=== PATIENT | female | born 1990 | race Caucasian/White ===

== ENCOUNTER 2024-07-25 15:18 | Emergency (ER) | payer MEDICAID, SELFPAY ==
[2024-07-25 15:29] VITALS: BP 151/103; PULSE 111; RESP 17; TEMP 36.8; O2SAT 96; BMI 32.1
[2024-07-25] MEDS: METOCLOPRAMIDE 5 MG TABLET 10 MG PO (16:15)
[2024-07-25] MEDS: CYCLObenzaPRINE 5 MG TABLET PO (16:15)
[2024-07-25] MEDS: ACETAMINOPHEN 325 MG TABLET 650 MG PO (16:15)
[2024-07-25] MEDS: DiphenhydrAMINE INJ 50 MG/ML VIAL IM (16:16)
[2024-07-25] MEDS: KETOROLAC INJ 60 MG/2 ML VIAL 30 MG IM (16:17)
[2024-07-25 16:47] LABS: Basophils # (Auto) 0.1 Thou/mm3 (0.0-0.2); Basophils % (Auto) 1 % (0-2.5); Eosinophils # (Auto) 0.3 Thou/mm3 (0.0-0.5); Eosinophils % (Auto) 3 % (0-10); Hematocrit 36.5 % (36.0-46.0); Hemoglobin 11.3 g/dL (12.0-16.0); Immature Granulocytes % (Auto) 0 % (0-0); Immature Granulocytes Auto 0.02 Thou/mm3 (0.00-0.00); Lymphocytes # (Auto) 2.7 Thou/mm3 (1.0-4.8); Lymphocytes % (Auto) 28 % (10-50); Mean Corpuscular Hemoglobin 22.2 pg (25.0-35.0); Mean Corpuscular Volume 72 fL (80-100); Monocytes # (Auto) 0.4 Thou/mm3 (0.0-0.8); Monocytes % (Auto) 4 % (0-12); Neutrophils # (Auto) 6.2 Thou/mm3 (1.8-7.7); Neutrophils % (Auto) 64 % (37-80); Nucleated Red Blood Cell % 0 /100 WBC (0); Platelet Count 346 Thou/mm3 (140-440); RDW Standard Deviation 41.9 fL (36.4-46.3); Red Blood Count 5.09 Miln/mm3 (4.00-5.20); White Blood Count 9.7 Thou/mm3 (3.6-11.0)
--- NOTE | 2024-07-25 17:33 | PD.EDHA ---
ED Headache RME/HPI General Chief Complaint: Headache Stated Complaint: Headache, bump to back of left head Time Seen by Provider: 07/25/24 15:34 Arrival date/time: 07/25/24 15:18 Limitations: no limitations RME / HPI RME / HPI Narrative: 33-year-old female with past medical history of migraines and anemia presents for evaluation of headache x 5 days. She describes it as constant aching from her trapezius region that radiates to her frontal scalp. She endorses that it is worse with movement of her neck. She endorses photophobia and intermittent nausea. She states this is similar to prior headaches. She notes small swollen lesion in her left posterior, temporal scalp. She denies fever, vomiting, numbness, tingling, visual changes, weakness, lethargy. Denies recent travel and known sick contacts. LNMP x 2 weeks ago. MD Complaint: headache Onset description: sudden Location: frontal, occipital and diffuse Quality: aching and similar to previous headaches Relieving factors: nothing Exacerbating factors: movement of head/neck Associated symptoms: photophobia Treatments prior to arrival: none Related Data Home Medications ?Medication ?Instructions ?Recorded ?Confirmed brexpiprazole 0.5 mg tablet 0.5 tab PO HS 09/01/21 09/01/21 (Rexulti) bupropion HCl 150 mg tablet,12 hr 1 ea PO DAILY 09/01/21 09/01/21 sustained-release ferrous sulfate 325 mg (65 mg 325 tab PO DAILY 09/01/21 09/01/21 iron) tablet (FeroSul) levetiracetam 500 mg tablet 500 tab PO BID 09/01/21 09/01/21 Previous Rx's ?Medication ?Instructions ?Recorded lorazepam 1 mg tablet 1 mg PO QDAY PRN anxiety #3 tabs 11/04/18 cyclobenzaprine 10 mg tablet 10 mg PO TID PRN muscle spasm #30 07/25/24 tabs ibuprofen 800 mg tablet 800 mg PO Q8H PRN pain #14 tabs 07/25/24 ondansetron 4 mg disintegrating 4 mg PO Q8H PRN nausea and 07/25/24 tablet vomiting #14 tabs Allergies Allergy/AdvReac Type Severity Reaction Status Date / Time No Known Allergies Allergy Verified 07/25/24 15:22 Review of Systems Constitutional Constitutional: Denies chills, Denies fatigue, Denies fever(s), Reports headache(s), Reports poor appetite and Denies weakness Eyes Eyes: Denies blind spots, Denies blurry vision, Denies change in vision, Denies diplopia, Denies loss of vision, Reports photophobia, Denies spots in vision and Denies tunnel vision ENT Ears, Nose, Mouth, and Throat: Denies disequilibrium, Denies dizziness, Denies otalgia, Reports headache(s), Denies nasal discharge, Reports neck pain, Denies sore throat and Denies vertigo Cardiovascular Cardiovascular: Denies chest pain, Denies dyspnea and Denies palpitations Respiratory Respiratory: Denies cough, Denies dyspnea and Denies wheezing Gastrointestinal Gastrointestinal: Denies abdominal pain, Denies diarrhea, Reports nausea and Denies vomiting Genitourinary Genitourinary: Denies abnormal vaginal bleeding and Denies dysuria Musculoskeletal Musculoskeletal: Denies back pain, Denies muscle weakness, Reports neck pain, Denies stiffness and Denies tingling Integumentary/Breasts Skin/Breast: Denies lesions and Denies rash Neurologic Neurologic: Denies abnormal movements, Denies abnormal speech, Denies disequilibrium, Denies dizziness, Reports headache(s), Denies lack of coordination, Denies loss of vision, Denies seizure-like activity, Denies tingling, Denies vertigo and Denies weakness Endocrine Endocrine: Denies fatigue and Denies palpitations Allergic/Immunologic Allergic/Immunologic: Denies wheezing Past Medical History Past Medical History NEUROLOGIC: Positive Migraine CARDIAC: Negative Congestive Heart Failure RESPIRATORY: Negative Chronic Obstructive Pulmonary Disease (COPD) GENITOURINARY: Negative Renal Disease ENDOCRINE: Negative Diabetes Mellitus Type 1 or Diabetes Mellitus Type 2 HEMATOLOGIC: Positive Anemia PSYCHO/SOCIAL: Positive Depression and Anxiety Surgical History SURGICAL: Positive Oral Surgery Social History SMOKING STATUS: Never smoker SUBSTANCE USE: does not use ED Exam General Limitations: Present no limitations General appearance: Present alert and in no apparent distress Head Head exam: Present atraumatic and normocephalic Eye Eye exam: Present normal appearance, PERRL and EOMI; Absent nystagmus ENT ENT exam: Present normal oropharynx, mucous membranes moist and TM's normal bilaterally Neck Neck exam: Present normal inspection and lymphadenopathy (Focal lymphadenopathy left temporal scalp with moderate tenderness to palpation. No overlying warmth or erythema.); Absent meningismus Chest Chest inspection: Present normal inspection and symmetric chest wall rise Respiratory Respiratory exam: Present normal lung sounds bilaterally; Absent respiratory distress or wheezes Cardiovascular Cardiovascular exam: Present tachycardia and +S1 Abdominal Exam Abdominal exam: Present soft; Absent distention or tenderness Extremities Exam Extremities exam: Present normal inspection and full ROM Back Exam Back exam: Present normal inspection, full ROM, muscle spasm (Muscle spasm bilateral trapezius region.) and paraspinal tenderness (Significant paraspinal tenderness to palpation bilateral cervical spine and trapezius.); Absent vertebral tenderness Neurological Exam Neurological exam: Present alert, oriented X3 and normal gait; Absent motor sensory deficit Expanded Neurological Exam Patient oriented to: Present person, place and time Speech: Present fluid speech Cranial nerves: Normal: facial sensation (V), facial palsy (VII) and spinal accessory function (XI) Cerebellar function: Normal: finger to nose Cerebellar function: Present normal gait Motor strength - LUE: 5/5 Motor strength - RUE: 5/5 Motor strength - LLE: 5/5 Motor strength - RLE: 5/5 Psychiatric Psychiatric exam: Present normal affect Skin Skin exam: Present warm, dry, intact and normal color Course Quality Measures none Orders Category Date Time Status CBC Stat Lab 07/25/24 16:27 Completed Acetaminophen Tab [Tylenol Tab] Med 07/25/24 15:55 Discontinued 650 mg PO X1 ONE CYCLObenzaPRINE [Flexeril] Med 07/25/24 15:55 Discontinued 5 mg PO X1 ONE DiphenhydrAMINE INJ [Benadryl Inj] Med 07/25/24 15:55 Discontinued 50 mg IM X1 ONE Ketorolac Inj [Toradol Inj] Med 07/25/24 15:55 Discontinued 30 mg IM X1 ONE Metoclopramide [Reglan] Med 07/25/24 15:55 Discontinued 10 mg PO X1 ONE Vital Signs Vital signs: Vital Signs Temperature 98.3 F 07/25/24 15:29 Pulse Rate 111 H 07/25/24 15:29 Respiratory Rate 17 07/25/24 15:29 Blood Pressure 151/103 H 07/25/24 15:29 Pulse Oximetry (%) 96 07/25/24 15:29 Oxygen Delivery Method Room Air 07/25/24 15:29 Pulse ox 96% on room air, within normal limits. Headache MDM Narrative MDM Narrative:: 33-year-old female presented for evaluation of headache x 5 days. She reported was similar to prior headaches. Patient tachycardic otherwise vital signs reassuring. Fortunately no neurodeficit on examination so less concern for CVA at this time. Patient afebrile with no meningeal signs. I checked CBC as patient reported history of anemia and she was anemic but not to the degree requiring emergent transfusion at this time. More likely tension headache given significant trapezius tension on examination. Patient symptoms were improved following headache cocktail in the department. Ultimately she was discharged with plan to follow-up with outpatient neurology for further management of her chronic headaches. Strict return precautions were provided. Patient stable at time of discharge. Patient data External records reviewed:: [facility] previous records Clinical information provided by:: patient Social determinants that could affect healthcare access:: none Patient has the following chronic illnesses:: Headaches. How is presenting disease/condition affected by chronic disease/condition?: exacerbated by Evaluation data The following diagnostics were reviewed and interpreted by me:: lab results Lab and/or radiology exams considered but not ordered:: CT head considered not ordered. Lab work considered not ordered. Interpretation Summary: CBC showed mild anemia. Not requiring blood transfusion at this time. Medications / Prescriptions Medications or Prescriptions considered but not ordered:: Rx given. Medication administrations:: Medication Administration History Discontinued Medications Acetaminophen (Acetaminophen 325 Mg Tablet) 650 mg PO X1 ONE Stop: 07/25/24 15:56 Last Admin: 07/25/24 16:15 Dose: 650 mg Documented By: Cyclobenzaprine HCl (Cyclobenzaprine 5 Mg Tablet) 5 mg PO X1 ONE Stop: 07/25/24 15:56 Last Admin: 07/25/24 16:15 Dose: 5 mg Documented By: Diphenhydramine HCl (Diphenhydramine Inj 50 Mg/Ml Vial) 50 mg IM X1 ONE Stop: 07/25/24 15:56 Last Admin: 07/25/24 16:16 Dose: 50 mg Documented By: Ketorolac Tromethamine (Ketorolac Inj 60 Mg/2 Ml Vial) 30 mg IM X1 ONE Stop: 07/25/24 15:56 Last Admin: 07/25/24 16:17 Dose: 30 mg Documented By: Metoclopramide HCl (Metoclopramide 5 Mg Tablet) 10 mg PO X1 ONE Stop: 07/25/24 15:56 Last Admin: 07/25/24 16:15 Dose: 10 mg Documented By: Rx given. Consultations Consultation(s) initiated? (list below): No Diagnosis Differential diagnosis headache: migraine, tension headache, subarachnoid hemorrhage, headache and sinusitis Most likely diagnosis given after review of the tests above:: Headache. Admission Indicated Admission indicated?: not indicated Admission Request Was there a request for admission?: No Disposition Plan Disposition Plan: Discharge Discharge Attestation Discharge Attestation: The patient and all family members were given an opportunity to ask questions and understood the discharge instructions. Discharge instructions specifically effects, indications for sooner follow up or return to the emergency department, and the expected course of current diagnosis. Patient condition: Stable Discharge Plan Plan Patient Disposition: HOME (Self Care) Discharge Disposition comment: stable Prescriptions/Referrals Prescriptions/Med Rec: New cyclobenzaprine 10 mg tablet 10 mg PO TID PRN (Reason: muscle spasm) Qty: 30 0RF ibuprofen 800 mg tablet 800 mg PO Q8H PRN (Reason: pain) Qty: 14 0RF ondansetron 4 mg tablet,disintegrating 4 mg PO Q8H PRN (Reason: nausea and vomiting) Qty: 14 0RF No Action lorazepam 1 mg tablet 1 mg PO QDAY PRN (Reason: anxiety) Qty: 3 0RF bupropion HCl 150 mg tablet sustained-release 12 hr 1 ea PO DAILY Patient Comments: TAKE ONE TABLET BY MOUTH TWICE DAILY levetiracetam 500 mg tablet 500 tab PO BID Patient Comments: TAKE ONE TABLET BY MOUTH TWICE DAILY ferrous sulfate [FeroSul] 325 mg (65 mg iron) tablet 325 tab PO DAILY Patient Comments: TAKE ONE TABLET BY MOUTH TWICE DAILY VITAMIN Rexulti 0.5 mg tablet 0.5 tab PO HS Patient Comments: TAKE ONE TABLET BY MOUTH AT BEDTIME Referrals: Héctor ([facility]),VANESA Gomez [Primary Care Provider] - In 1 week Problem List Clinical Impression: Headache Patient/Caregiver Discharge Instructions Education Materials: Self-Care for Headaches Additional Instructions: Follow-up with primary care within the next week for reevaluation. Take multivitamin as discussed for borderline anemia. Follow-up with neurology for recurrent headaches as discussed. Take Flexeril as needed for muscle tension every 8 hours. Take ibuprofen or Tylenol every 6 hours as needed for headache. Hydrate well with adequate p.o. fluids. Return to the ED if your symptoms worsen or change. Print Language: Icelandic Stand Alone Forms: [employer] Award Info., Patient Portal Info Letter PA/AVIATION TECHNICAL SYSTEMS SPECIALIST Supervising Physician PA/AVIATION TECHNICAL SYSTEMS SPECIALIST Supervising Physician: Dr. Fields
== END 2024-07-25 18:42 | disposition home or self-care (01) ==
PROVIDERS: Physician Assistant; Emergency Provider Emergency Medicine; PCP Physician Assistant
DX: R51.9 Headache, unspecified (principal)
CPT/HCPCS: 36415; 85025; 96372; 99283; J1200; J1885; A9270

== ENCOUNTER 2024-10-13 23:09 | Emergency (ER) | payer MEDICAID, SELFPAY ==
[2024-10-14 00:06] VITALS: BP 130/84; PULSE 89; RESP 20; TEMP 36.9; O2SAT 98; BMI 32.8
--- NOTE | 2024-10-14 00:07 | XR_ITS ---
Examination: CT brain head without contrast. 2-D sagittal coronal reconstructions Date and time of exam:October 14, 2024, 0016 hrs. Indications: Onset headaches today CTDI: vol (mGy):44.20 DLP: (mGycm):945 Technique: Multiple CT axial sections of the brain have been obtained, 5 mm slice thickness. Contrast has not been administered. 2-D sagittal, coronal reconstructions have been obtained Low dose protocols were performed. One or more of the following dose reduction techniques were used; automated exposure control, adjustment of the mA and/or KV according to patient size, use of iterative reconstruction technique. Findings: No significant ventricular enlargement. Intra-axial or extra-axial hemorrhage density is not seen. No mass effect or midline shift Basal cisterns are not remarkable. Fourth ventricle is midline. Cranial vault intact. Impression: Negative for acute hemorrhage, mass effect or midline shift Chronic ethmoid sinusitis
--- NOTE | 2024-10-14 00:07 | PD.EDRME ---
Rapid Medical Screening Exam RME Arrival date/time: 10/13/24 23:09 This is a case of 33-year-old female with no medical history came into the emergency room due to headache and dizziness for 3 days worsening of the symptoms this patient decided to start consulted in the emergency room Chief Complaint: Headache Time Seen by Provider: 10/14/24 00:06 Vital signs: Vital Signs Temperature 98.4 F 10/14/24 00:06 Pulse Rate 89 10/14/24 00:06 Respiratory Rate 20 10/14/24 00:06 Blood Pressure 130/84 10/14/24 00:06 Pulse Oximetry (%) 98 10/14/24 00:06
--- NOTE | 2024-10-14 00:37 | PRELIM_ITS ---
CT scan of the head without intravenous contrast (axial sections with sagittal and coronal reformats). October 14, 2024 0016 hours Clinical History: headache Comparison: None currently available for review Findings: There is no intracranial hemorrhage, extra-axial collection, mass, mass-effect or midline shift. There is good haines-white differentiation. There is no CT evidence of acute large vascular territorial infarct. Ventricles are not enlarged or effaced. Visualized paranasal sinuses and tympanomastoid cavities are clear. The bony calvarium is intact. Impression: No intracranial hemorrhage, mass-effect or midline shift. No CT evidence of acute large vascular territorial infarct. Report Electronically Signed By: Jerad Magallon 10/14/2024 12:36:24 AM [EST]
[2024-10-14 00:39] VITALS: BP 135/107; PULSE 99; RESP 22; TEMP 36.8; O2SAT 97
[2024-10-14 01:00] VITALS: BP 143/94; PULSE 89; RESP 20; TEMP 36.8; O2SAT 95
--- NOTE | 2024-10-14 01:08 | PD.EDHA ---
ED Headache RME/HPI General Chief Complaint: Headache Stated Complaint: HEADACHE Time Seen by Provider: 10/14/24 00:06 Arrival date/time: 10/13/24 23:09 RME / HPI RME / HPI Narrative: 10/13/24 23:09 This is a case of 33-year-old female with no medical history came into the emergency room due to headache and dizziness for 3 days worsening of the symptoms this patient decided to start consulted in the emergency room DR. OBRIEN MAIN ED EVALUATION: 33 y/o female with Hx of Migraines, Anxiety, and Anemia presents to ED c/o with anterior and posterior headache x 3 days. Denies vomiting due to not being able to eat much over the last few days. Also reports difficulty sleeping due to the pain. Patient states this headache feels similar to the one she was seen for in July, but feels more pain towards the posterior aspect of the head this time. Noallergies to medication reported. Related Data Home Medications ?Medication ?Instructions ?Recorded ?Confirmed brexpiprazole 0.5 mg tablet 0.5 tab PO HS 09/01/21 09/01/21 (Rexulti) bupropion HCl 150 mg tablet,12 hr 1 ea PO DAILY 09/01/21 09/01/21 sustained-release ferrous sulfate 325 mg (65 mg 325 tab PO DAILY 09/01/21 09/01/21 iron) tablet (FeroSul) levetiracetam 500 mg tablet 500 tab PO BID 09/01/21 09/01/21 Previous Rx's ?Medication ?Instructions ?Recorded lorazepam 1 mg tablet 1 mg PO QDAY PRN anxiety #3 tabs 11/04/18 cyclobenzaprine 10 mg tablet 10 mg PO TID PRN muscle spasm #30 07/25/24 tabs ibuprofen 800 mg tablet 800 mg PO Q8H PRN pain #14 tabs 07/25/24 ondansetron 4 mg disintegrating 4 mg PO Q8H PRN nausea and 07/25/24 tablet vomiting #14 tabs naproxen 500 mg tablet (Naprosyn) 500 mg PO BID PRN pain #30 tabs 10/14/24 Allergies Allergy/AdvReac Type Severity Reaction Status Date / Time No Known Allergies Allergy Verified 10/13/24 23:10 Review of Systems Review of Systems Systems Reviewed: All systems reviewed, normal except as documented Past Medical History Past Medical History NEUROLOGIC: Positive Migraine CARDIAC: Positive Hypercholesterolemia RESPIRATORY: Positive Asthma HEMATOLOGIC: Positive Anemia PSYCHO/SOCIAL: Positive Depression, Anxiety and Post Traumatic Stress Disorder Surgical History SURGICAL: Positive Oral Surgery ED Exam Narrative Physical exam: Generally patient is alert and in no obvious distress, head is normocephalic atraumatic, eyes pupils are equal round reactive to light, neck shows no nuchal rigidity, neurologic exam shows [place] Coma Scale of 15 without focal motor deficits, heart regular rate and rhythm, lungs clear to auscultation equal bilaterally, abdomen soft bowel sounds present nondistended nontender Course Quality Measures none Orders Category Date Time Status CT head/brain wo con Stat Exams 10/14/24 00:07 Taken Ketorolac Inj [Toradol Inj] Med 10/14/24 01:09 Discontinued 60 mg IM X1 ONE Metoclopramide Inj [Reglan Inj] Med 10/14/24 01:09 Discontinued 10 mg IM X1 ONE Vital Signs Vital signs: Vital Signs Temperature 98.4 F 10/14/24 00:06 Pulse Rate 89 10/14/24 00:06 Respiratory Rate 20 10/14/24 00:06 Blood Pressure 130/84 10/14/24 00:06 Pulse Oximetry (%) 98 10/14/24 00:06 Headache MDM Narrative MDM Narrative:: Scribe Attestation: Latesha Alcantara am scribing for and in the presence of Dr. Obrien. Provider Notation: Although this document has been carefully reviewed, there may still be some phonetic and other typographical errors. These errors are purely grammatical due to imperfections in the software program and should not be construed in any way to compromise the substance of the patient's medical care during this visit. Differential diagnosis: Primary cephalgia, secondary cephalgia I do not believe this patient had meningitis and intracerebral bleed or tumor. Prior to my evaluation a CAT scan was ordered and the CAT scan was negative. Patient received Toradol 60 mg IM and Reglan 10 mg IM. She was discharged on Naprosyn to be taken as prescribed. Follow-up with her doctor as needed for further treatment and evaluation. Patient states that these headaches are hereditary because they are suffered from multiple family members. Patient data External records reviewed:: [facility] previous records (Reviewed prior ED records from 07/25/24. Patient was seen for Headache.) Clinical information provided by:: patient Social determinants that could affect healthcare access:: none Patient has the following chronic illnesses:: Migraine, Hypercholesterolemia, Asthma, Anemia, Depression, Anxiety and Post Traumatic Stress Disorder How is presenting disease/condition affected by chronic disease/condition?: exacerbated by Evaluation data The following diagnostics were reviewed and interpreted by me:: lab results and radiology exam(s) Lab and/or radiology exams considered but not ordered:: None Interpretation Summary: RADIOLOGY Head/Brain CT: Findings: There is no intracranial hemorrhage, extra-axial collection, mass, mass-effect or midline shift. There is good haines-white differentiation. There is no CT evidence of acute large vascular territorial infarct. Ventricles are not enlarged or effaced. Visualized paranasal sinuses and tympanomastoid cavities are clear. The bony calvarium is intact. Impression: No intracranial hemorrhage, mass-effect or midline shift. No CT evidence of acute large vascular territorial infarct. Medications / Prescriptions Medications or Prescriptions considered but not ordered:: None Medication administrations:: Medication Administration History Discontinued Medications Ketorolac Tromethamine (Ketorolac Inj 60 Mg/2 Ml Vial) 60 mg IM X1 ONE Stop: 10/14/24 01:10 Last Admin: 10/14/24 01:17 Dose: 60 mg Documented By: BD Metoclopramide HCl (Metoclopramide Inj 5 Mg/Ml Vial 2 Ml) 10 mg IM X1 ONE; Protocol Stop: 10/14/24 01:10 Last Admin: 10/14/24 01:17 Dose: 10 mg Documented By: BD See above if any Consultations Consultation(s) initiated? (list below): No Diagnosis Differential diagnosis headache: migraine, tension headache, subarachnoid hemorrhage, headache and sinusitis Most likely diagnosis given after review of the tests above:: none Admission Indicated Admission indicated?: not indicated Explain why admission is indicated or not indicated:: Patient does not meet admission criteria Admission Request Was there a request for admission?: No Disposition Plan Disposition Plan: Discharge Discharge Attestation Discharge Attestation: The patient and all family members were given an opportunity to ask questions and understood the discharge instructions. Discharge instructions specifically effects, indications for sooner follow up or return to the emergency department, and the expected course of current diagnosis. Patient condition: Stable Discharge Plan Plan Patient Disposition: HOME (Self Care) Prescriptions/Referrals Prescriptions/Med Rec: New naproxen [Naprosyn] 500 mg tablet 500 mg PO BID PRN (Reason: pain) Qty: 30 0RF No Action lorazepam 1 mg tablet 1 mg PO QDAY PRN (Reason: anxiety) Qty: 3 0RF bupropion HCl 150 mg tablet sustained-release 12 hr 1 ea PO DAILY Patient Comments: TAKE ONE TABLET BY MOUTH TWICE DAILY levetiracetam 500 mg tablet 500 tab PO BID Patient Comments: TAKE ONE TABLET BY MOUTH TWICE DAILY ferrous sulfate [FeroSul] 325 mg (65 mg iron) tablet 325 tab PO DAILY Patient Comments: TAKE ONE TABLET BY MOUTH TWICE DAILY VITAMIN Rexulti 0.5 mg tablet 0.5 tab PO HS Patient Comments: TAKE ONE TABLET BY MOUTH AT BEDTIME cyclobenzaprine 10 mg tablet 10 mg PO TID PRN (Reason: muscle spasm) Qty: 30 0RF ibuprofen 800 mg tablet 800 mg PO Q8H PRN (Reason: pain) Qty: 14 0RF ondansetron 4 mg tablet,disintegrating 4 mg PO Q8H PRN (Reason: nausea and vomiting) Qty: 14 0RF Referrals: No Primary/Family,Physician [Primary Care Provider] - In 1 week Problem List Clinical Impression: Headache Patient/Caregiver Discharge Instructions Education Materials: Self-Care for Headaches Additional Instructions: Naprosyn as prescribed. Follow-up with your doctor for further treatment and evaluation as needed. Print Language: Zambian Stand Alone Forms: [employer] Award Info., Patient Portal Info Letter
[2024-10-14] MEDS: KETOROLAC INJ 60 MG/2 ML VIAL IM (01:17)
[2024-10-14] MEDS: METOCLOPRAMIDE INJ 5 MG/ML VIAL 2 ML 10 MG IM (01:17)
--- NOTE | 2024-10-14 01:32 | PC.NURSE ---
PT D/C PRIOR TO PAIN REASSES WOULD NOT ALLOW TO ASSESS EARLY ON MAR
== END 2024-10-14 01:33 | disposition home or self-care (01) ==
PROVIDERS: Emergency Provider Emergency Medicine
DX: R51.9 Headache, unspecified (principal)
CPT/HCPCS: 70450; 80053; 81001; 81025; 85025; 96372; 99283; J1885; J2765

== ENCOUNTER 2024-11-25 16:15 | Emergency (ER) | payer MEDICAID, SELFPAY ==
[2024-11-25 16:51] VITALS: BP 127/90; PULSE 100; RESP 20; TEMP 36.8; O2SAT 97; BMI 34.1
[2024-11-25 16:57] VITALS: PULSE 98; O2SAT 97
--- NOTE | 2024-11-25 17:03 | EKG_ITS ---
[facility] Test Date: 2024-11-25 Pat Name: ÁNGEL VELAZCO Department: Room: - Gender: Female Security Inspector: : 1990 Requested By: Ryne Gamez Order Number: [id number] Reading MD: Ryen Gamez Measurements Intervals [place] Rate: 101 P: 50 MS: 118 QRS: 53 QRSD: 86 T: 11 QT: 351 QTc: 457 Interpretive Statements SINUS TACHYCARDIA WITH SHORT MS INTERVAL LOW QRS VOLTAGE IN PRECORDIAL LEADS [QRS DEFLECTION < 1.0 mV IN CHEST LEADS] NONSPECIFIC T-WAVE ABNORMALITY ABNORMAL RHYTHM ECG No previous ECG available for comparison /store/S0/[id number]/ecg/[id number].pdf
--- NOTE | 2024-11-25 17:03 | XR_ITS ---
EXAMINATION: PA lateral chest 2 views TECHNIQUE: Upright PA lateral chest 2 views Date and time: November 25, 2024, 1710 hours INDICATIONS: Chest pain today FINDINGS: Normal heart size Lungs are clear. Osseous structures are intact. IMPRESSION: No active disease
--- NOTE | 2024-11-25 17:04 | PD.EDRME ---
Rapid Medical Screening Exam RME Arrival date/time: 11/25/24 16:15 34-year-old female with a history of asthma, presents to the emergency room with a chief complaint of dizziness, lightheadedness, headaches, weakness x 4 days I have greeted and performed a focused initial assessment of this patient. A comprehensive ED assessment and evaluation of the patient, analysis of all test results, and completion of the medical decision making process will be conducted by additional ED providers. Chief Complaint: Dizziness Time Seen by Provider: 11/25/24 16:28 Vital signs: Vital Signs Temperature 98.3 F 11/25/24 16:51 Pulse Rate 100 11/25/24 16:51 Respiratory Rate 20 11/25/24 16:51 Blood Pressure 127/90 H 11/25/24 16:51 Pulse Oximetry (%) 97 11/25/24 16:51 Oxygen Delivery Method Room Air 11/25/24 16:51 Vital signs reviewed by provider: Yes
[2024-11-25 18:35] LABS: Collection Type, Urine Clean Catch
[2024-11-25 18:42] LABS: Basophils # (Auto) 0.1 Thou/mm3 (0.0-0.2); Basophils % (Auto) 0 % (0-2.5); Eosinophils # (Auto) 0.2 Thou/mm3 (0.0-0.5); Eosinophils % (Auto) 1 % (0-10); Hematocrit 39.9 % (36.0-46.0); Hemoglobin 11.9 g/dL (12.0-16.0); Immature Granulocytes Auto 0.04 Thou/mm3 (0.00-0.00); Lymphocytes # (Auto) 2.1 Thou/mm3 (1.0-4.8); Lymphocytes % (Auto) 19 % (10-50); Mean Corpuscular HGB Conc 29.8 g/dl (31.0-37.0); Mean Corpuscular Hemoglobin 22.2 pg (25.0-35.0); Mean Corpuscular Volume 75 fL (80-100); Monocytes # (Auto) 0.6 Thou/mm3 (0.0-0.8); Monocytes % (Auto) 6 % (0-12); Neutrophils # (Auto) 8.4 Thou/mm3 (1.8-7.7); Neutrophils % (Auto) 74 % (37-80); Nucleated Red Blood Cell # 0.00 Thou/mm3 (0.00-0.00); Nucleated Red Blood Cell % 0 /100 WBC (0); Platelet Count 410 Thou/mm3 (140-440); RDW Standard Deviation 42.6 fL (36.4-46.3); Red Blood Count 5.35 Miln/mm3 (4.00-5.20); White Blood Count 11.4 Thou/mm3 (3.6-11.0)
[2024-11-25 18:50] LABS: Bacteria,Urine 1+; Bilirubin,Urine Negative (Negative); Blood,Urine Negative (Negative); Color,Urine Yellow (Lt Yel-Yel); Glucose, Urine Negative (Negative); Ketones,Urine Negative (Negative); Leukocyte Esterase,Urine Positive (Negative); Nitrite,Urine Negative (Negative); PH,Urine 6.5 (5.0-7.0); Protein,Urine Trace (Neg - Trace); RBC,Urine 8 /hpf (0-3); Specific Gravity,Urine 1.028 (1.001-1.035); Squamous Epithelial Cell,Urine 4 /hpf (0-5); Urobilinogen,Urine Negative mg/dL (0.0-1.0); WBC,Urine 6 /hpf (0-5)
[2024-11-25 18:51] LABS: Amphetamine/Methamp Scrn,U Negative (Negative); Barbiturate Screen,Urine Negative (Negative); Benzodiazepines Screen,Urine Negative (Negative); Benzoylecgonine Screen, Ur Negative (Negative); Fentanyl Screen,Urine Negative (Negative); Opiate Screen,Urine Negative (Negative); THC Screen,Urine Negative (Negative)
[2024-11-25 18:52] LABS: Clarity,Urine Cloudy (Clear/Hazy); Culture Indicated,Urine Yes
[2024-11-25 19:04] LABS: B-Type Natriuretic Peptide < 20 pg/mL (0-100); INR 1.0 (0.9-1.3); Partial Thromboplastin Time 31.9 Seconds (22.0-36.0); Prothrombin Time 10.4 Seconds (9.0-12.2)
[2024-11-25 19:07] LABS: Alanine Aminotransferase < 7 U/L (10-49); Albumin, Serum 5.1 gm/dL (3.5-5.0); Albumin/Globulin Ratio 1.5 (1.2-2.2); Alkaline Phosphatase 89 U/L (46-116); Anion Gap 12 (7-16); Aspartate Amino Transferase 18 U/L (0-34); BUN/Creatinine Ratio 8 Ratio (12-20); Bilirubin,Total 0.4 mg/dL (0.3-1.2); Blood Urea Nitrogen 6 mg/dL (9-23); Calcium 10.3 mg/dL (8.3-10.6); Calcium (Corrected) 10.3 mg/dL (8.5-10.1); Carbon Dioxide 23.9 mMol/L (20.0-31.0); Chloride 102 mMol/L (98-107); Creatinine (Component) 0.8 mg/dL (0.6-1.3); Globulin 3.3 gm/dL (2.3-3.5); Glucose 90 mg/dL (74-106); Magnesium 2.0 mg/dL (1.6-2.6); Osmolality,Calculated 273 (275-295); Potassium 4.3 mMol/L (3.4-5.1); Sodium 138 mMol/L (136-145); Total Protein 8.4 gm/dL (5.7-8.2); Troponin I < 0.002 ng/mL (0.0-0.045); eGFR > 60 See Note
[2024-11-25 20:59] VITALS: BP 138/95; PULSE 104; RESP 19; TEMP 37.2; O2SAT 98
--- NOTE | 2024-11-25 21:26 | PD.EDDIZZY ---
ED Dizzyness RME/HPI General Chief Complaint: Dizziness Stated Complaint: WEAKNESS Time Seen by Provider: 11/25/24 16:28 Arrival date/time: 11/25/24 16:15 RME / HPI RME / HPI Narrative: 11/25/24 16:15 34-year-old female with a history of asthma, presents to the emergency room with a chief complaint of dizziness, lightheadedness, headaches, weakness x 4 days I have greeted and performed a focused initial assessment of this patient. A comprehensive ED assessment and evaluation of the patient, analysis of all test results, and completion of the medical decision making process will be conducted by additional ED providers. Related Data Home Medications ?Medication ?Instructions ?Recorded ?Confirmed brexpiprazole 0.5 mg tablet 0.5 tab PO HS 09/01/21 09/01/21 (Rexulti) bupropion HCl 150 mg tablet,12 hr 1 ea PO DAILY 09/01/21 09/01/21 sustained-release ferrous sulfate 325 mg (65 mg 325 tab PO DAILY 09/01/21 09/01/21 iron) tablet (FeroSul) levetiracetam 500 mg tablet 500 tab PO BID 09/01/21 09/01/21 Previous Rx's ?Medication ?Instructions ?Recorded lorazepam 1 mg tablet 1 mg PO QDAY PRN anxiety #3 tabs 11/04/18 cyclobenzaprine 10 mg tablet 10 mg PO TID PRN muscle spasm #30 07/25/24 tabs ibuprofen 800 mg tablet 800 mg PO Q8H PRN pain #14 tabs 07/25/24 ondansetron 4 mg disintegrating 4 mg PO Q8H PRN nausea and 07/25/24 tablet vomiting #14 tabs naproxen 500 mg tablet (Naprosyn) 500 mg PO BID PRN pain #30 tabs 10/14/24 Allergies Allergy/AdvReac Type Severity Reaction Status Date / Time No Known Allergies Allergy Verified 11/25/24 16:58 Course Orders Category Date Time Status EKG (ED ONLY) *Do not use* NOW Care 11/25/24 17:03 Completed EKG (ED Only) Stat Exams 11/25/24 17:03 Draft XR chest 2V Stat Exams 11/25/24 17:03 Completed B-Type Natriuretic Peptide Stat Lab 11/25/24 18:11 Completed CBC Stat Lab 11/25/24 18:11 Completed Comprehensive Metabolic Panel Stat Lab 11/25/24 18:11 Completed Drug Screen,Urine Stat Lab 11/25/24 18:28 Completed Magnesium Stat Lab 11/25/24 18:11 Completed Partial Thromboplastin Time Stat Lab 11/25/24 18:11 Completed Prothrombin Time with INR Stat Lab 11/25/24 18:11 Completed Troponin I Stat Lab 11/25/24 18:11 Completed Urinalysis, C/S if Indicated Stat Lab 11/25/24 18:28 Completed Urine Culture Stat Lab 11/25/24 18:28 Received Acetaminophen Tab [Tylenol Tab] Med 11/25/24 21:27 Discontinued 650 mg PO X1 ONE Metoclopramide [Reglan] Med 11/25/24 21:27 Discontinued 5 mg PO X1 ONE Vital Signs Vital signs: Vital Signs Temperature 98.3 F 11/25/24 16:51 Pulse Rate 100 11/25/24 16:51 Respiratory Rate 20 11/25/24 16:51 Blood Pressure 127/90 H 11/25/24 16:51 Pulse Oximetry (%) 97 11/25/24 16:51 Oxygen Delivery Method Room Air 11/25/24 16:51 Dizziness MDM Narrative MDM Narrative:: Patient is a 34-year-old female seen emerged from concerns for headache and feeling dizzy. Patient has a history of chronic headaches. States that her headaches feel like her prior headaches. Vital signs and exam as listed. Concern for tension headache, migraine headache, intracranial hemorrhage, AVM among others. Ordered labs, CT brain, CT angio as well as MRI. Also order labs and offer medication for symptom relief. Medications / Prescriptions Medication administrations:: Medication Administration History Discontinued Medications Acetaminophen (Acetaminophen 325 Mg Tablet) 650 mg PO X1 ONE Stop: 11/25/24 21:28 Last Admin: 11/25/24 21:59 Dose: 650 mg Documented By: KATHIA Metoclopramide HCl (Metoclopramide 5 Mg Tablet) 5 mg PO X1 ONE Stop: 11/25/24 21:28 Last Admin: 11/25/24 21:59 Dose: 5 mg Documented By: KATHIA Discharge Plan Prescriptions/Referrals Prescriptions/Med Rec: No Action lorazepam 1 mg tablet 1 mg PO QDAY PRN (Reason: anxiety) Qty: 3 0RF bupropion HCl 150 mg tablet sustained-release 12 hr 1 ea PO DAILY Patient Comments: TAKE ONE TABLET BY MOUTH TWICE DAILY levetiracetam 500 mg tablet 500 tab PO BID Patient Comments: TAKE ONE TABLET BY MOUTH TWICE DAILY ferrous sulfate [FeroSul] 325 mg (65 mg iron) tablet 325 tab PO DAILY Patient Comments: TAKE ONE TABLET BY MOUTH TWICE DAILY VITAMIN Rexulti 0.5 mg tablet 0.5 tab PO HS Patient Comments: TAKE ONE TABLET BY MOUTH AT BEDTIME cyclobenzaprine 10 mg tablet 10 mg PO TID PRN (Reason: muscle spasm) Qty: 30 0RF ibuprofen 800 mg tablet 800 mg PO Q8H PRN (Reason: pain) Qty: 14 0RF ondansetron 4 mg tablet,disintegrating 4 mg PO Q8H PRN (Reason: nausea and vomiting) Qty: 14 0RF naproxen [Naprosyn] 500 mg tablet 500 mg PO BID PRN (Reason: pain) Qty: 30 0RF Referrals: No Primary/Family,Physician [Primary Care Provider] - In 1 week Patient/Caregiver Discharge Instructions Print Language: Swedish
[2024-11-25] MEDS: METOCLOPRAMIDE 5 MG TABLET PO (21:59)
[2024-11-25] MEDS: ACETAMINOPHEN 325 MG TABLET 650 MG PO (21:59)
[2024-11-25 22:00] VITALS: BP 143/119; PULSE 101; RESP 17; TEMP 36.6; O2SAT 100
--- NOTE | 2024-11-25 23:21 | XR_ITS ---
Examination: CT brain head without contrast. 2-D sagittal coronal reconstructions Date and time of exam: November 26, 2024, 0340 hours, comparison 10/14/2024 INDICATIONS: Headaches beginning 4 days ago CTDI: vol (mGy): 50 DLP: (mGycm): 932 Technique: Multiple CT axial sections of the brain have been obtained, 5 mm slice thickness. Contrast has not been administered. 2-D sagittal, coronal reconstructions have been obtained Low dose protocols were performed. One or more of the following dose reduction techniques were used; automated exposure control, adjustment of the mA and/or KV according to patient size, use of iterative reconstruction technique. Findings: No significant ventricular enlargement. Intra-axial or extra-axial hemorrhage density is not seen. No mass effect or midline shift Basal cisterns are not remarkable. Fourth ventricle is midline. Cranial vault intact. Impression: Negative for acute hemorrhage, mass effect or midline shift Chronic pansinusitis
--- NOTE | 2024-11-25 23:29 | XR_ITS ---
Examination: CTA carotids with intravenous contrast CTA brain, head with intravenous contrast. 2-D sagittal, coronal reconstructions. 3-D reconstructions. Exam date and time: November 26, 2024, 0358 hours INDICATIONS: Headaches and dizziness episodes beginning 4 days ago CTDI: vol (mGy) 11.7 DLP: (mGycm) 405 Technique: Multiple CTA axial brain, head carotid images post intravenous contrast injection 75 cc, [id number]. 2-D sagittal, coronal reconstructions. 3-D reconstructions, 3-D post processing including vascular maximum intensity projection images. Low dose protocols were performed. One or more of the following dose reduction techniques were used; automated exposure control, adjustment of the mA and/or KV according to patient size, use of iterative reconstruction technique. Findings: No common carotid carotid bifurcation or internal carotid artery stenoses Dominant left vertebral artery with no critical stenoses in the neck No cerebral large vessel arterial occlusions, thrombus, dissection or cerebral aneurysm IMPRESSION: No significant neck arterial stenoses No cerebral large vessel arterial occlusions thrombus or cerebral aneurysm As clinically warranted, consider brain MRI/MRA without contrast, stroke protocol, follow-up
--- NOTE | 2024-11-25 23:31 | PD.EDHA ---
ED Headache RME/HPI General Chief Complaint: Dizziness Stated Complaint: WEAKNESS Time Seen by Provider: 11/25/24 16:28 Arrival date/time: 11/25/24 16:15 RME / HPI RME / HPI Narrative: 11/25/24 16:15 34-year-old female with a history of asthma, presents to the emergency room with a chief complaint of dizziness, lightheadedness, headaches, weakness x 4 days I have greeted and performed a focused initial assessment of this patient. A comprehensive ED assessment and evaluation of the patient, analysis of all test results, and completion of the medical decision making process will be conducted by additional ED providers. DR. GONZALEZ MAIN ED EVALUATION: 34 y/o female with Hx of Anemia, Migraine and Chronic Headache for several years present with worsening severe headache with associated dizziness and nausea x several days. Over the last few years patient's pain has been localized to the front of her head and are now to the back of the neck. Over the last few days the pain has become significantly worse, especially when looking to the right. Denies any fever, chest pain, abdominal pain, recent traveling or sick contacts. Reports she has been trying to see a neurologist, but the referral is still pending at this time. Denies any injury or trauma. No medications or allergies to medications reported. Related Data Home Medications ?Medication ?Instructions ?Recorded ?Confirmed brexpiprazole 0.5 mg tablet 0.5 tab PO HS 09/01/21 09/01/21 (Rexulti) bupropion HCl 150 mg tablet,12 hr 1 ea PO DAILY 09/01/21 09/01/21 sustained-release ferrous sulfate 325 mg (65 mg 325 tab PO DAILY 09/01/21 09/01/21 iron) tablet (FeroSul) levetiracetam 500 mg tablet 500 tab PO BID 09/01/21 09/01/21 Previous Rx's ?Medication ?Instructions ?Recorded lorazepam 1 mg tablet 1 mg PO QDAY PRN anxiety #3 tabs 11/04/18 cyclobenzaprine 10 mg tablet 10 mg PO TID PRN muscle spasm #30 07/25/24 tabs ibuprofen 800 mg tablet 800 mg PO Q8H PRN pain #14 tabs 07/25/24 ondansetron 4 mg disintegrating 4 mg PO Q8H PRN nausea and 07/25/24 tablet vomiting #14 tabs naproxen 500 mg tablet (Naprosyn) 500 mg PO BID PRN pain #30 tabs 10/14/24 acetaminophen 300 mg-codeine 30 mg 2 tab PO Q8H PRN pain #20 tabs 11/26/24 tablet cefdinir 300 mg capsule 300 mg PO BID #14 caps 11/26/24 ondansetron 4 mg disintegrating 4 mg PO TID PRN nausea and 11/26/24 tablet vomiting 30 days #10 tabs scopolamine base 1 mg over 3 days 1 mg topical .q72 hours PRN 11/26/24 transdermal patch (Transderm-Scop) dizziness or vertigo #4 ea Allergies Allergy/AdvReac Type Severity Reaction Status Date / Time No Known Allergies Allergy Verified 11/25/24 16:58 Review of Systems Review of Systems Systems Reviewed: All systems reviewed, normal except as documented Past Medical History Past Medical History NEUROLOGIC: Positive Migraine CARDIAC: Positive Hypercholesterolemia RESPIRATORY: Positive Asthma GASTROINTESTINAL: Positive Obesity HEMATOLOGIC: Positive Anemia PSYCHO/SOCIAL: Positive Depression, Anxiety and Post Traumatic Stress Disorder Surgical History SURGICAL: Positive Oral Surgery ED Exam Narrative Physical exam: GEN. APPEARANCE: The patient is alert awake oriented X-3 in no distress, lying down comfortably, does not look ill/toxic. Patient has good eye contact. Patient is cooperative. VITALS: All vitals were reviewed and the pulse ox is 100% on room air which is normal according to my interpretation. HEENT: Normocephalic, atraumatic. Pupils are equal and reactive. Oral mucosa is moist. Patent Nares NECK: Supple, nontender, no thyromegaly, no meningismus, no JVD CHEST: Symmetrical, atraumatic, and with equal expansion , Nontender on palpation no deformity and no crepitus. CARDIOVASCULAR: Heart regular rhythm no murmur or gallop rub or extra beats. LUNGS: Clear to auscultation bilaterally with symmetrical chest rise. No laboring tachypnea or wheezing. No intercostal subcostal retraction. No rales and no rhonchi. ABDOMEN: Soft, flat, nontender to palpation, no guarding or rebound tenderness. There are no abnormal masses palpated. Active and normal bowel sounds. EXTREMITIES: Nontender. No edema. No cyanosis. Patient is able to move all 4 extremities well, with full ROM and good CSM. SKIN: Warm and dry, no jaundice or rashes noted. MUSCULOSKELETAL: No lumbar or midline bony tenderness. There is no CVA tenderness. No paraspinal muscle spasm or tenderness. NEURO: Patient is DOOLEY x 4, Cranial nerves II through XII grossly intact. There is no focal neurologic deficits noted. GCS is 15, PNS and [employer] appear grossly intact. PSYCHIATRIC: Patient is in normal mood and affect. Course Quality Measures none Orders Category Date Time Status CT Screening NOW Care 11/25/24 23:29 Completed EKG (ED ONLY) *Do not use* NOW Care 11/25/24 17:03 Completed MRI Screening NOW Care 11/25/24 23:[address] angio carotid w head w Stat Exams 11/25/24 23:[address] head/brain wo con Stat Exams 11/25/24 23:21 Completed EKG (ED Only) Stat Exams 11/25/24 17:03 Draft XR chest 2V Stat Exams 11/25/24 17:03 Completed B-Type Natriuretic Peptide Stat Lab 11/25/24 18:11 Completed CBC Stat Lab 11/25/24 18:11 Completed Comprehensive Metabolic Panel Stat Lab 11/25/24 18:11 Completed Drug Screen,Urine Stat Lab 11/25/24 18:28 Completed Magnesium Stat Lab 11/25/24 18:11 Completed Partial Thromboplastin Time Stat Lab 11/25/24 18:11 Completed Prothrombin Time with INR Stat Lab 11/25/24 18:11 Completed Troponin I Stat Lab 11/25/24 18:11 Completed Urinalysis, C/S if Indicated Stat Lab 11/25/24 18:28 Completed Urine Culture Stat Lab 11/25/24 18:28 Completed ACETAMINOPHEN w/COD 300-30 [Tylenol w/Cod #3] Med 11/25/24 23:52 Discontinued 2 tab PO X1 ONE Acetaminophen Tab [Tylenol Tab] Med 11/25/24 21:27 Discontinued 650 mg PO X1 ONE DiphenhydrAMINE INJ [Benadryl Inj] Med 11/25/24 23:32 Discontinued 25 mg IVP X1 ONE Magnesium Sulfate 1 gm Ivpb [Magnesium Sulfate Ivpb] Med 11/25/24 23:37 Discontinued 1 gm in 100 ml IV X1 Meclizine HCl [Antivert] Med 11/25/24 23:52 Discontinued 25 mg PO X1 ONE Metoclopramide Inj [Reglan Inj] Med 11/25/24 23:33 Discontinued 5 mg IVP STAT STA Metoclopramide [Reglan] Med 11/25/24 21:27 Discontinued 5 mg PO X1 ONE Ringers Lactated 1000 ml [Lactated Ringers] 1,000 ml Med 11/25/24 23:30 Discontinued IV 999 mls/hr Scopolamine [Transderm-Scop Patch] Med 11/25/24 23:52 Discontinued 1 mg TOP X1 ONE cefTRIAXone/D5w 1gm IV premix [Rocephin/D5w 1gm IV Med 11/26/24 00:38 Discontinued premix] 1 g in 50 ml IV X1 Vital Signs Vital signs: Vital Signs Temperature 98.3 F 11/25/24 16:51 Pulse Rate 100 11/25/24 16:51 Respiratory Rate 20 11/25/24 16:51 Blood Pressure 127/90 H 11/25/24 16:51 Pulse Oximetry (%) 97 11/25/24 16:51 Oxygen Delivery Method Room Air 11/25/24 16:51 Headache MDM Narrative MDM Narrative:: Scribe Attestation: ILatesha, am scribing for and in the presence of Dr. Gonzalez. Provider Notation: Although this document has been carefully reviewed, there may still be some phonetic and other typographical errors. These errors are purely grammatical due to imperfections in the software program and should not be construed in any way to compromise the substance of the patient's medical care during this visit. Patient is a 34-year-old female seen emerged from concerns for headache and feeling dizzy. Patient has a history of chronic headaches. States that her headaches feel like her prior headaches. Vital signs and exam as listed. Concern for tension headache, migraine headache, intracranial hemorrhage, AVM among others. Ordered labs, CT brain, CT angio as well as MRI. Also order labs and offer medication for symptom relief. At this time my shift is ended transition care over to oncoming provider. Patient is pending results of her workup and safe dispo. Patient data External records reviewed:: [facility] previous records (Reviewed prior ED records from 10/14/24. Patient was seen for Headache. ) Clinical information provided by:: patient Social determinants that could affect healthcare access:: none Patient has the following chronic illnesses:: Migraine, Hypercholesterolemia, Asthma, Obesity, Anemia, Depression, Anxiety and Post Traumatic Stress Disorder How is presenting disease/condition affected by chronic disease/condition?: exacerbated by Evaluation data The following diagnostics were reviewed and interpreted by me:: lab results and radiology exam(s) Lab and/or radiology exams considered but not ordered:: None Interpretation Summary: RADIOLOGY Chest X-Ray: FINDINGS: Normal heart size Lungs are clear. Osseous structures are intact. IMPRESSION: No active disease Medications / Prescriptions Medications or Prescriptions considered but not ordered:: None Medication administrations:: Medication Administration History Discontinued Medications Acetaminophen (Acetaminophen 325 Mg Tablet) 650 mg PO X1 ONE Stop: 11/25/24 21:28 Last Admin: 11/25/24 21:59 Dose: 650 mg Documented By: KATHIA Acetaminophen/Codeine Phosphate (Acetaminophen W/Cod 300-30 Tablet) 2 tab PO X1 ONE Stop: 11/25/24 23:53 Last Admin: 11/26/24 00:46 Dose: 2 tab Documented By: KATHIA Diphenhydramine HCl (Diphenhydramine Inj 50 Mg/Ml Vial) 25 mg IVP X1 ONE Stop: 11/25/24 23:33 Last Admin: 11/25/24 23:55 Dose: 25 mg Documented By: KATHIA Lactated Ringer's (Lactated Ringers) 1,000 mls @ 999 mls/hr IV .Q1H1M ONE Stop: 11/26/24 00:30 Last Infusion: 11/26/24 00:55 Dose: Infused Documented By: Admin: 11/25/24 23:54 Dose: 999 mls/hr Documented By: KATHIA Magnesium Sulfate/Dextrose (Magnesium Sulfate Ivpb) 1 gm in 100 mls @ 100 mls/hr IV X1 ONE Stop: 11/26/24 00:36 Last Admin: 11/25/24 23:57 Dose: Not Given Documented By: KATHIA Non-Admin Reason: Cancelled by Provider Ceftriaxone Sodium/Dextrose (Rocephin/D5w 1gm Iv Premix) 1 g in 50 mls @ 100 mls/hr IV X1 ONE Stop: 11/26/24 01:07 Last Infusion: 11/26/24 01:23 Dose: Infused Documented By: Admin: 11/26/24 00:53 Dose: 100 mls/hr Documented By: KATHIA Meclizine HCl (Meclizine Hcl 25 Mg Tablet) 25 mg PO X1 ONE Stop: 11/25/24 23:53 Last Admin: 11/26/24 00:47 Dose: 25 mg Documented By: KATHIA Metoclopramide HCl (Metoclopramide 5 Mg Tablet) 5 mg PO X1 ONE Stop: 11/25/24 21:28 Last Admin: 11/25/24 21:59 Dose: 5 mg Documented By: KATHIA Metoclopramide HCl (Metoclopramide Inj 5 Mg/Ml Vial 2 Ml) 5 mg IVP STAT STA; Protocol Stop: 11/25/24 23:34 Last Admin: 11/25/24 23:56 Dose: 5 mg Documented By: KATHIA Scopolamine (Scopolamine 1 Mg Tdsy) 1 mg TOP X1 ONE Stop: 11/25/24 23:53 Last Admin: 11/26/24 00:47 Dose: 1 mg Documented By: KATHIA See above if any Consultations Consultation(s) initiated? (list below): No Diagnosis Differential diagnosis headache: migraine, tension headache, subarachnoid hemorrhage, headache and sinusitis Most likely diagnosis given after review of the tests above:: Headache Admission Indicated Admission indicated?: not indicated Explain why admission is indicated or not indicated:: Pending CT and MRI Admission Request Was there a request for admission?: No Disposition Plan Disposition Plan: other (specify) (Signed out to Dr. Fields at 11 PM.) Discharge Plan Plan Patient Disposition: HOME (Self Care) Prescriptions/Referrals Prescriptions/Med Rec: New acetaminophen-codeine 300-30 mg tablet 2 tab PO Q8H MDD 6 PRN (Reason: pain) Qty: 20 0RF scopolamine base [Transderm-Scop] 1 mg over 3 days patch 3 day 1 mg topical .q72 hours PRN (Reason: dizziness or vertigo) Qty: 4 0RF ondansetron 4 mg tablet,disintegrating 4 mg PO TID PRN (Reason: nausea and vomiting) 30 Days Qty: 10 0RF cefdinir 300 mg capsule 300 mg PO BID Qty: 14 0RF No Action lorazepam 1 mg tablet 1 mg PO QDAY PRN (Reason: anxiety) Qty: 3 0RF bupropion HCl 150 mg tablet sustained-release 12 hr 1 ea PO DAILY Patient Comments: TAKE ONE TABLET BY MOUTH TWICE DAILY levetiracetam 500 mg tablet 500 tab PO BID Patient Comments: TAKE ONE TABLET BY MOUTH TWICE DAILY ferrous sulfate [FeroSul] 325 mg (65 mg iron) tablet 325 tab PO DAILY Patient Comments: TAKE ONE TABLET BY MOUTH TWICE DAILY VITAMIN Rexulti 0.5 mg tablet 0.5 tab PO HS Patient Comments: TAKE ONE TABLET BY MOUTH AT BEDTIME cyclobenzaprine 10 mg tablet 10 mg PO TID PRN (Reason: muscle spasm) Qty: 30 0RF ibuprofen 800 mg tablet 800 mg PO Q8H PRN (Reason: pain) Qty: 14 0RF ondansetron 4 mg tablet,disintegrating 4 mg PO Q8H PRN (Reason: nausea and vomiting) Qty: 14 0RF naproxen [Naprosyn] 500 mg tablet 500 mg PO BID PRN (Reason: pain) Qty: 30 0RF Referrals: No Primary/Family,Physician [Primary Care Provider] - In 1 week Problem List Clinical Impression: Migraine headache, UTI (urinary tract infection), Vertigo Patient/Caregiver Discharge Instructions Discharge Activity: activity as tolerated Education Materials: ED Headache, Migraine, Classic, ED CYSTITIS Female Adult, ED Vertigo, Unspecified Additional Instructions: Discharge Instructions from Dr. Fields printed for you: 1. Fortunately, there is no life-threatening condition. Such as stroke or brain tumor. 2. Your diagnoses include migraine headache, vertigo, and urinary tract infection. See attached handouts. 3. Tylenol with codeine for severe headache. Scopolamine patches for dizziness/spinning sensation. Zofran for nausea/vomiting. For good hydration, increase oral fluid and maintain clear urine. If dark or yellow, increase oral fluid. 4. See a private doctor on 11/27/2024 for recheck and further care. Ask to review all test results and official radiology reports, to make sure you receive all necessary follow-ups and monitoring. 5. Seek immediate medical care with worsening or with any concerns. Print Language: Swazi Stand Alone Forms: [employer] Info., Patient Portal Info Letter
[2024-11-25] MEDS: RINGERS LACTATED 1000 ML 1,000 ML 999 ML IV (23:54)
[2024-11-25] MEDS: METOCLOPRAMIDE INJ 5 MG/ML VIAL 2 ML IVP (23:56)
[2024-11-26] MEDS: ACETAMINOPHEN w/COD 300-30 TABLET 2 TAB PO (00:46)
[2024-11-26] MEDS: SCOPOLAMINE 1 MG TDSY TOP (00:47)
[2024-11-26] MEDS: MECLIZINE HCL 25 MG TABLET PO (00:47)
[2024-11-26] MEDS: cefTRIAXone/D5w 1gm IV premix 1 G/50 ML BAG IV (00:53)
--- NOTE | 2024-11-26 01:42 | PD.EDADDENDU ---
Emergency Room Addendum <Latesha Izquierdo - Last Filed: 11/26/24 05:13> Addendum Narrative: I took over the care from previous shift physician at 11 PM on 11/25/2024. See previous notes for complete H & P and ED course. I reviewed all diagnostic test results. My interpretation of the EKG is My interpretation of the chest x-ray is NAD. My review of the Head/Brain CT report is no acute findings. My review of the Head/Neck CTA report is no acute findings. Blood tests and urine tests Diagnoses include: UTI Migraine Headache Vertigo Treatment here included Rocephin/D5w 1G Transderm Scopolamine 1 mg Antivert 25 mg Tylenol with Codeine #3 Recommended outpatient care. Based on my best medical judgment, made decision no further evaluation or treatment indicated at this time. Patient understands and agrees to the discharge instructions customized and printed, see below. Discharge Instructions from Dr. Fields printed for you: 1. Fortunately, there is no life-threatening condition. Such as stroke or brain tumor. 2. Your diagnoses include migraine headache, vertigo, and urinary tract infection. See attached handouts. 3. Tylenol with codeine for severe headache. Scopolamine patches for dizziness/ spinning sensation. Zofran for nausea/vomiting. For good hydration, increase oral fluid and maintain clear urine. If dark or yellow, increase oral fluid. 4. See a private doctor on 11/27/2024 for recheck and further care. Ask to review all test results and official radiology reports, to make sure you receive all necessary followups and monitoring. 5. Seek immediate medical care with worsening or with any concerns. Richard Fields MD <Richard Fields MD - Last Filed: 11/27/24 09:19> Addendum Narrative: I took over the care from previous shift physician, Dr. Gonzalez, at 11 PM on 11/25/2024. See previous notes for complete H & P and ED course. I reviewed all diagnostic test results. Diagnoses include: UTI Migraine Headache Vertigo Treatment here from me included: Rocephin 1G IV Transderm Scopolamine 1 mg Antivert 25 mg PO Two Tylenol #3 She felt much better. Recommended outpatient care. Based on my best medical judgment, made decision no further evaluation or treatment indicated at this time. Patient understands and agrees to the discharge instructions customized and printed, see below. Discharge Instructions from Dr. Fields printed for you: 1. Fortunately, there is no life-threatening condition. Such as stroke or brain tumor. 2. Your diagnoses include migraine headache, vertigo, and urinary tract infection. See attached handouts. 3. Tylenol with codeine for severe headache. Scopolamine patches for dizziness/ spinning sensation. Zofran for nausea/vomiting. For good hydration, increase oral fluid and maintain clear urine. If dark or yellow, increase oral fluid. 4. See a private doctor on 11/27/2024 for recheck and further care. Ask to review all test results and official radiology reports, to make sure you receive all necessary followups and monitoring. 5. Seek immediate medical care with worsening or with any concerns. Richard Fields MD
[2024-11-26 02:10] VITALS: BP 131/87; PULSE 97; RESP 18; TEMP 36.3; O2SAT 97
--- NOTE | 2024-11-26 03:27 | PC.NURSE ---
2nd attempt to call ct to take patient
[2024-11-26 04:06] VITALS: BP 143/92; PULSE 99; RESP 19; TEMP 36; O2SAT 94
--- NOTE | 2024-11-26 04:14 | PRELIM_ITS ---
CT scan of the head without intravenous contrast Clinical history: Headache Findings: There is no evidence of intracranial hemorrhage, mass effect or midline shift. The ventricles, sulci and basal cisterns are unremarkable. The calvarium is unremarkable. Left maxillary sinus mucosal thickening. No paranasal sinus fluid levels. Impression: No evidence of intracranial hemorrhage, mass effect or midline shift. Report Electronically Signed By: Faustino Olmedo 11/26/2024 4:14:03 AM [EST]
--- NOTE | 2024-11-26 04:57 | PRELIM_ITS ---
CT angiogram of the head and neck with intravenous contrast (axial sections with sagittal and coronal reformats) November 26, 2024 0356 hours Clinical History: Aneurysm. Comparison: No prior study is available for comparison. Findings: Neck: The aortic arch to the extent visualized as well as the origins of the right brachiocephalic, left common carotid, and left subclavian arteries are patent. The common carotid arteries, carotid bulbs, and internal and external carotid arteries are patent. The origins of the vertebral arteries are unremarkable. No evidence of vascular occlusion, significant stenosis, dissection or aneurysm. Impression: No evidence of vascular occlusion, significant stenosis, dissection or aneurysm. Head: The distal vertebral arteries, basilar, internal carotid arteries, bilateral anterior, middle, and posterior cerebral arteries are unremarkable. No aneurysm or hemodynamically significant stenosis is seen. Vertebral arteries are codominant. The posterior communicating arteries are unremarkable to the extent visualized. Impression: Normal brain CT angiogram. Report Electronically Signed By: Faustino Olmedo 11/26/2024 4:57:20 AM [EST]
[2024-11-26 05:15] VITALS: BP 157/96; PULSE 95; RESP 15; TEMP 36.9; O2SAT 98
== END 2024-11-26 05:16 | disposition home or self-care (01) ==
PROVIDERS: Nurse Practitioner Family; Emergency Provider Emergency Medicine
DX: N39.0 Urinary tract infection, site not specified (principal); G43.909 Migraine, unspecified, not intractable, without status migrainosus; J45.909 Unspecified asthma, uncomplicated
CPT/HCPCS: 36415; 70450; 70496; 70498; 71046; 80053; 80307; 81001; 83735; 83880; 84484; 85025; 85610; 85730; 87086; 93005; 96361; 96365; 96375; 99283; A4649; J0696; J1200; J2765; J7120; Q9967; A9270